=== PATIENT | female | born 2005 | race African-American/Black ===

== ENCOUNTER 2023-11-21 18:28 | Emergency (ER) | payer MEDICAID ==
[~2023-11-21] VITALS: Ht 162.6 cm; Wt 50.0 kg
[2023-11-21] MEDS ORDERED: MORPHINE SULFATE 4 MG/ML CPJ (NOT FOR IM USE) IV ONE (19:00)
[2023-11-21] MEDS ORDERED: MIDAZOLAM HCL 2 MG/2 ML VIAL IV ONE (19:15)
[2023-11-21 19:31] VITALS: O2SAT 100
[2023-11-21 21:23] VITALS: BP 120/89; PULSE 63; RESP 18; TEMP 98.1
== END 2023-11-21 21:29 | disposition home or self-care (01) ==
LOC: ER 18:28
DX: S43.004A Unspecified dislocation of right shoulder joint, initial encounter (principal); X58.XXXA Exposure to other specified factors, initial encounter; Y93.89 Activity, other specified; Y92.89 Other specified places as the place of occurrence of the external cause; Y99.8 Other external cause status
CPT/HCPCS: 73030; 23650; 96374; 96375; 99152; 99285; J2250; J2270; Z7610 ×2